=== PATIENT | female | born 1990 | race American Indian/Alaskan Native ===

== ENCOUNTER 2016-10-06 16:46 | Emergency (ER) | payer SELFPAY ==
[2016-10-06 18:00] LABS: Basophils % (Auto) 0.5 % (0.0-1.8); Eosinophils % (Auto) 3.4 % (0.0-4.3); Hematocrit 38.7 % (30.3-42.9); Hemoglobin 12.3 gm/dl (10.1-14.3); Mean Corpuscular HGB Conc 32 % (30-34); Mean Corpuscular Hemoglobin 28 pg (28-32); Mean Corpuscular Volume 88 fl (79-97); Platelet Count 212 K/mm3 (140-440); Red Blood Count 4.39 M/mm3 (3.65-5.03); Red Cell Distribution Width 14.9 % (13.2-15.2); White Blood Count 8.3 K/mm3 (4.5-11.0)
[2016-10-06 18:11] LABS: BUN/Creatinine Ratio 7.77; Blood Urea Nitrogen 7 mg/dL (7-17); Calcium 8.8 mg/dL (8.4-10.2); Carbon Dioxide 20 mmol/L (22-30); Glucose 84 mg/dL (65-100); Lipase 50 units/L (13-60)
[2016-10-06 18:12] LABS: Anion Gap 18 mmol/L; Chloride 101.3 mmol/L (98-107); Potassium 3.7 mmol/L (3.6-5.0); Sodium 136 mmol/L (137-145)
[2016-10-06 19:23] LABS: Bacteria,Urine 1+ /HPF (Negative); Bilirubin,Urine NEG (Negative); Blood,Urine NEG (Negative); Ketones,Urine 20 mg/dL (Negative); Leukocyte Esterase,Urine TR (Negative); Mucus,Urine 3+ /HPF; Nitrite,Urine NEG (Negative); Protein,Urine <15 mg/dL mg/dL (Negative); Urobilinogen,Urine < 2.0 mg/dL (<2.0); WBC,Urine < 1.0 /HPF (0.0-6.0)
[2016-10-06] MEDS ORDERED: ZOFRAN IV ONE ×2 (20:28→22:35)
[2016-10-06] MEDS ORDERED: NACL 0.9% 1000 ML 1,000 ML IV ONE (22:35)
--- NOTE | 2016-10-06 22:53 | Emergency Department Report ---
HPI - General Chief Complaint: Nausea/Vomiting/Diarrhea Time Seen by Provider: 10/06/16 22:28 - HPI HPI: Room 4 The patient's 26-year-old female presenting with a chief complaint of nausea and vomiting. Patient states for the past week she has had intractable nausea and vomiting. Patient states her symptoms began she did not have abdominal pain over the past 3 days her abdomen has become sore from vomiting. Patient describes lower abdominal soreness. Patient admits to subjective fever. Patient denies vaginal bleeding, dysuria or hematuria. Patient states she cannot recall the last time showed cycle because she is irregular Location: Gastrointestinal system Duration: One week Quality: Nausea Severity: Severe Modifying factors: [see above] Context: [see above] Mode of transportation: [not driving] ED Past Medical Hx - Past Medical History Hx Asthma: Yes (last attack 2011) - Surgical History Past Surgical History?: No - Family History Family history: no significant - Social History Smoking Status: Current Some Day Smoker Substance Use Type: Marijuana - Medications Home Medications: Home Medications Medication Instructions Recorded Confirmed Last Taken Type Ondansetron [Zofran ODT TAB] 8 mg PO Q8HR #30 tab.rapdis 10/07/16 Unknown Rx ED Review of Systems ROS: Stated complaint: N/V Other details as noted in HPI Comment: All other systems reviewed and negative Constitutional: denies: chills, fever Eyes: denies: eye pain, eye discharge, vision change ENT: denies: ear pain, throat pain Respiratory: denies: cough, shortness of breath, wheezing Cardiovascular: denies: chest pain, palpitations Endocrine: no symptoms reported Gastrointestinal: abdominal pain, nausea, vomiting Genitourinary: abnormal menses. denies: urgency, dysuria, discharge Musculoskeletal: denies: back pain, joint swelling, arthralgia Skin: denies: rash, lesions Neurological: denies: headache, weakness, paresthesias Psychiatric: denies: anxiety, depression Hematological/Lymphatic: denies: easy bleeding, easy bruising Physical Exam - Physical Exam Vital Signs: Vital Signs 10/06/16 10/06/16 10/06/16 17:18 21:41 21:53 Temperature 98.1 F 98.3 F Pulse Rate 83 87 Respiratory 22 22 22 Rate Blood Pressure 128/68 Blood Pressure 127/65 [Left] O2 Sat by Pulse 100 98 Oximetry Physical Exam: GENERAL: The patient is well-developed well-nourished female lying on stretcher not appear to be in acute distress. [] HEENT: Normocephalic. Atraumatic. Extraocular motions are intact. Patient has moist mucous membranes. NECK: Supple. Trachea midline CHEST/LUNGS: Clear to auscultation. There is no respiratory distress noted. HEART/CARDIOVASCULAR: Regular. There is no tachycardia. There is no gallop rub or murmur. ABDOMEN: Abdomen is soft, mild discomfort to palpation in the left lower quadrant and right lower quadrant. Patient has normal bowel sounds. There is no abdominal distention. SKIN: There is no rash. There is no edema. There is no diaphoresis. NEURO: The patient is awake, alert, and oriented. The patient is cooperative. The patient has normal speech MUSCULOSKELETAL: There is no evidence of acute injury. ED Course Vital Signs 10/06/16 10/06/16 10/06/16 17:18 21:41 21:53 Temperature 98.1 F 98.3 F Pulse Rate 83 87 Respiratory 22 22 22 Rate Blood Pressure 128/68 Blood Pressure 127/65 [Left] O2 Sat by Pulse 100 98 Oximetry - Reevaluation(s) Reevaluation #1: 10/07/16 00:43 Patient tolerating po ED Medical Decision Making - Lab Data Result diagrams: 10/06/16 17:33 10/06/16 17:33 Laboratory Tests 10/06/16 10/06/16 10/06/16 17:13 17:33 17:33 WBC 8.3 RBC 4.39 Hgb 12.3 Hct 38.7 MCV 88 MCH 28 MCHC 32 RDW 14.9 Plt Count 212 Lymph % (Auto) 39.7 H [place] % (Auto) 6.0 Eos % (Auto) 3.4 Baso % (Auto) 0.5 Lymph # 3.3 [place] # 0.5 Eos # 0.3 Baso # 0.0 Seg Neutrophils % 50.4 Seg Neutrophils # 4.2 Sodium 136 L Potassium 3.7 Chloride 101.3 Carbon Dioxide 20 L Anion Gap 18 BUN 7 Creatinine 0.9 Estimated GFR > 60 BUN/Creatinine Ratio 7.77 Glucose 84 POC Glucose 106 H Calcium 8.8 Lipase 50 HCG, Quant Urine Color Urine Turbidity Urine pH Ur Specific [place] Urine Protein Urine Glucose (UA) Urine Ketones Urine Blood Urine Nitrite Urine Bilirubin Urine Urobilinogen Ur Leukocyte Esterase Urine WBC (Auto) Urine RBC (Auto) U Epithel Cells (Auto) Urine Bacteria (Auto) Urine Mucus Urine HCG, Qual 10/06/16 10/06/16 10/06/16 17:33 19:03 22:15 WBC RBC Hgb Hct MCV MCH MCHC RDW Plt Count Lymph % (Auto) [place] % (Auto) Eos % (Auto) Baso % (Auto) Lymph # [place] # Eos # Baso # Seg Neutrophils % Seg Neutrophils # Sodium Potassium Chloride Carbon Dioxide Anion Gap BUN Creatinine Estimated GFR BUN/Creatinine Ratio Glucose POC Glucose 79 Calcium Lipase HCG, Quant 30671 H Urine Color Yellow Urine Turbidity Clear Urine pH 6.0 Ur Specific [place] 1.026 Urine Protein <15 mg/dl Urine Glucose (UA) Neg Urine Ketones 20 Urine Blood Neg Urine Nitrite Neg Urine Bilirubin Neg Urine Urobilinogen < 2.0 Ur Leukocyte Esterase Tr Urine WBC (Auto) < 1.0 Urine RBC (Auto) 7.0 U Epithel Cells (Auto) 10.0 Urine Bacteria (Auto) 1+ Urine Mucus 3+ Urine HCG, Qual Positive A - EKG Data -: EKG Interpreted by Me EKG shows normal: sinus rhythm Rate: normal - EKG Data When compared to previous EKG there are: previous EKG unavailable Interpretation: other (no ischemic changes seen) - Radiology Data Radiology results: report reviewed (pelvic ultrasound), image reviewed (pelvic ultrasound) Pelvic ultrasound (read by radiologist)- possible normal early intrauterine gestation at 5 weeks and 6 days. At this time no pole or cardiac activity is identified. Follow-up is recommended. Complex lesions in the left ovary could be hemorrhagic cyst. Follow-up recommended. There is no free fluid. - Differential Diagnosis hyperemesis gravidarum, ectopic , Critical care attestation.: If time is entered above; I have spent that time in minutes in the direct care of this critically ill patient, excluding procedure time. ED Disposition Clinical Impression: Hyperemesis gravidarum, Disposition: DISCHARGED TO HOME OR SELFCARE Is pt being admited?: No Does the pt Need Aspirin: No Condition: Stable Instructions: Hyperemesis Gravidarum (ED) Additional Instructions: Return to the emergency department immediately should you develop worsening symptoms, fever, inability to tolerate food or liquid or any other concerns. Prescriptions: Ondansetron [Zofran ODT TAB] 8 mg PO Q8HR #30 tab.rapdis Referrals: PRIMARY CARE, [Primary Care Provider] - 3-5 Days [facility] [Provider Group] - [place] Time of Disposition: 00:42
--- NOTE | 2016-10-06 23:37 | Ultrasound Report ---
FINAL REPORT PROCEDURE: US OB \T\lt; = 14 WEEKS FETUS TECHNIQUE: Real-time transabdominal sonography of the uterus, placenta, amniotic fluid, adnexa, and fetus was performed with image documentation. Measurements were obtained to determine age/size. M-mode Doppler was used to document heartbeat. CPT 61230 HISTORY: lower abdominal pain and COMPARISON: No prior studies are available for comparison. FINDINGS: There is a sac-like structure in the endometrial cavity which measures 11 millimeters. This suggests an intrauterine gestation at 5 weeks and 6 days. No pole, yolk sac or cardiac activity is identified. Followup recommended. There is an adjacent subchorionic hematoma measuring 9 x 4 x 11 millimeters. The uterus measures 10.3 x 5.9 x 5.6 centimeters. Right ovary measures 3.4 x 1.9 x 2.4 centimeters. Left ovary measures 3.5 x 5 x 4.5 centimeters. There is a complex cyst measuring 2.8 centimeters and a complex mass measuring 3.5 centimeters. These could be hemorrhagic cysts. Followup is recommended. There is no free pelvic fluid. IMPRESSION: Possible normal early intrauterine gestation at 5 weeks and 6 days. At this time no pole, yolk sac or cardiac activity is identified. Followup is recommended. Complex lesions in the left ovary could be hemorrhagic cysts. Follow-up recommended. There is no free fluid.
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
[2016-10-07 00:55] VITALS: BP 113/68
== END 2016-10-07 00:40 | disposition home or self-care (01) ==
LOC: ED 16:46
DX: O21.0 Mild hyperemesis gravidarum (principal); Z3A.01 Less than 8 weeks gestation of pregnancy; J45.909 Unspecified asthma, uncomplicated; Z88.0 Allergy status to penicillin; Z88.1 Allergy status to other antibiotic agents
CPT/HCPCS: 36415; 76801; 76817; 80048; 81001; 81025; 82962; 83690; 84702; 85025; 93005; 93010; 96361; 96374; 96375; 99284; J2405; J7030

== ENCOUNTER 2017-03-06 20:33 | Outpatient (CLI) | payer OTHER, MEDICAID ==
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
[~2017-03-06 20:33] MED LIST: TYLENOL PO ONE
[2017-03-07 11:36] VITALS: BP 115/58
== END 2017-03-06 21:45 | disposition home or self-care (01) ==
LOC: TRG 20:33 → LDOR 20:33 → TRG 20:37 → LD 20:53 → TRG 20:53 → LDOR 21:45 → EDSTATUS 21:46
PROVIDERS: ATTEND Obstetrics & Gynecology
DX: O26.892 Other specified pregnancy related conditions, second trimester (principal); R10.9 Unspecified abdominal pain; M54.5 Low back pain; M25.551 Pain in right hip; O99.332 Smoking (tobacco) complicating pregnancy, second trimester; V89.2XXA Person injured in unspecified motor-vehicle accident, traffic, initial encounter; Z3A.27 27 weeks gestation of pregnancy; Y93.89 Activity, other specified; Y92.89 Other specified places as the place of occurrence of the external cause; Y99.8 Other external cause status
CPT/HCPCS: 59025; 72020; 76700; 76816

== ENCOUNTER 2017-05-17 02:20 | Outpatient (CLI) | payer MEDICAID ==
[2017-05-17 03:01] VITALS: BP 132/82
[2017-05-17] MEDS ORDERED: VISTARIL PO ONE (03:04)
== END 2017-05-17 03:10 | disposition home or self-care (01) ==
LOC: TRG 02:20
PROVIDERS: ATTEND Obstetrics & Gynecology
DX: O47.1 False labor at or after 37 completed weeks of gestation (principal); Z87.891 Personal history of nicotine dependence; Z3A.37 37 weeks gestation of pregnancy
CPT/HCPCS: 59025; Q0177

== ENCOUNTER 2017-05-19 13:08 | Outpatient (CLI) | payer MEDICAID ==
[2017-05-19 13:43] VITALS: BP 116/70
--- NOTE | 2017-05-19 15:46 | Ultrasound Report ---
BIOPHYSICAL PROFILE: INDICATION: Decreased movement. COMPARISON: None similar. TECHNIQUE: Transabdominal ultrasound with Doppler interrogation. 2 - breathing movements 2 - movements 2 - posture and tone 2 - Qualitative amniotic fluid volume 8 - TOTAL SCORE OF POSSIBLE 8 Heart Rate (bpm) 143 CONCLUSION: Findings, as above.
== END 2017-05-19 15:30 | disposition home or self-care (01) ==
LOC: TRG 13:08
PROVIDERS: ATTEND Obstetrics & Gynecology
DX: O36.8130 Decreased fetal movements, third trimester, not applicable or unspecified (principal); O47.1 False labor at or after 37 completed weeks of gestation; Z87.891 Personal history of nicotine dependence; Z3A.38 38 weeks gestation of pregnancy
CPT/HCPCS: 59025; 76819

== ENCOUNTER 2017-05-26 22:58 | Outpatient (CLI) | payer MEDICAID ==
[2017-05-26 23:56] VITALS: BP 120/67
[2017-05-27] MEDS ORDERED: VISTARIL PO ONE (01:48)
== END 2017-05-27 01:35 | disposition home or self-care (01) ==
LOC: TRG 22:58
PROVIDERS: ATTEND Obstetrics & Gynecology
DX: O47.1 False labor at or after 37 completed weeks of gestation (principal); Z3A.39 39 weeks gestation of pregnancy
CPT/HCPCS: Q0177

== ENCOUNTER 2017-05-30 04:30 | Inpatient (IN) | payer MEDICAID ==
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
[2017-05-30] MEDS ORDERED: LACTATED RINGERS 1,000 ML ONE (05:43)
[2017-05-30] MEDS ORDERED: ZOFRAN IV PRN (05:49)
[2017-05-30] MEDS ORDERED: SUBLIMAZE IV PRN (05:49)
[2017-05-30] MEDS ORDERED: BRETHINE SUB-Q PRN (05:49)
[2017-05-30] MEDS ORDERED: XYLOCAINE 2% INFILTRATI ONE (05:49)
[2017-05-30] MEDS ORDERED: MINERAL OIL PO PRN (05:49)
[2017-05-30] MEDS ORDERED: ePHEDrine SULFATE IV PRN ×2 (05:49→09:24)
[2017-05-30] MEDS ORDERED: PITOCin/NS 20 UNIT/1000ML DRIP 20 UNITS/1,000 ML BAG IV SCH ×2 (06:00→12:16)
[2017-05-30] MEDS: LACTATED RINGERS 1,000 ML IV SCH ×2 (06:00→08:39)
[2017-05-30 06:08] LABS: Hematocrit 34.4 % (30.3-42.9); Hemoglobin 11.6 gm/dl (10.1-14.3); Mean Corpuscular HGB Conc 34 % (30-34); Mean Corpuscular Hemoglobin 30 pg (28-32); Mean Corpuscular Volume 88 fl (79-97); Platelet Count 143 K/mm3 (140-440); Red Blood Count 3.89 M/mm3 (3.65-5.03); Red Cell Distribution Width 13.7 % (13.2-15.2)
[2017-05-30] MEDS: PITOCin/NS 30 UNIT/500ML 30 UNITS/500 ML BAG IV SCH ×2 (06:29→07:29)
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
[2017-05-30 06:57] LABS: Bilirubin,Urine NEG (Negative); Blood,Urine SM (Negative); Color,Urine Yellow (Yellow); Hyaline Casts,Urine 1 /LPF; Mucus,Urine 3+ /HPF; Nitrite,Urine NEG (Negative)
[2017-05-30] MEDS ORDERED: STADOL IV PRN (08:53)
[2017-05-30] MEDS ORDERED: STADOL ONE (08:57)
--- NOTE | 2017-05-30 09:01 | Progress Note ---
Assessment and Plan IVF open for pre-epidural bolus, anesthesia called and states he will be here "in awhile". Order for stadol given. Anticipate . - Patient Problems (1) Active labor at term Current Visit: No Status: Acute Subjective - Subjective Date of service: 05/30/17 Principal diagnosis: active labor @ term Patient reports: loss of fluid, movement normal, contractions Objective - Vital Signs Vital Signs: Vital Signs - 12hr 05/30/17 05/30/17 05/30/17 04:45 04:46 05:41 Temperature 97.9 F Pulse Rate 114 H 114 H 103 H Respiratory 20 Rate Blood Pressure 118/78 134/60 Blood Pressure 118/78 [Left] O2 Sat by Pulse Oximetry 05/30/17 05/30/17 05/30/17 05:53 05:57 05:58 Temperature Pulse Rate 101 H 107 H 103 H Respiratory Rate Blood Pressure Blood Pressure [Left] O2 Sat by Pulse 98 89 98 Oximetry 05/30/17 05/30/17 05/30/17 06:16 06:21 06:23 Temperature Pulse Rate 95 H 100 H 93 H Respiratory Rate Blood Pressure Blood Pressure [Left] O2 Sat by Pulse 97 95 94 Oximetry 05/30/17 05/30/17 05/30/17 06:26 06:28 06:31 Temperature Pulse Rate 109 H 92 H 102 H Respiratory Rate Blood Pressure Blood Pressure [Left] O2 Sat by Pulse 97 94 96 Oximetry 05/30/17 05/30/17 05/30/17 06:36 06:41 06:46 Temperature Pulse Rate 102 H 86 97 H Respiratory Rate Blood Pressure Blood Pressure [Left] O2 Sat by Pulse 96 98 97 Oximetry 05/30/17 05/30/17 05/30/17 06:51 06:52 06:56 Temperature Pulse Rate 90 92 H 91 H Respiratory Rate Blood Pressure Blood Pressure [Left] O2 Sat by Pulse 95 94 97 Oximetry 05/30/17 05/30/17 05/30/17 07:01 07:06 07:11 Temperature Pulse Rate 82 93 H 86 Respiratory Rate Blood Pressure Blood Pressure [Left] O2 Sat by Pulse 96 98 98 Oximetry 05/30/17 05/30/17 05/30/17 07:16 07:21 07:24 Temperature 96.8 F L Pulse Rate 74 87 88 Respiratory 16 Rate Blood Pressure Blood Pressure 118/79 [Left] O2 Sat by Pulse 96 98 Oximetry 05/30/17 05/30/17 05/30/17 07:26 07:30 07:31 Temperature Pulse Rate 89 102 H 89 Respiratory Rate Blood Pressure 118/79 Blood Pressure [Left] O2 Sat by Pulse 98 90 98 Oximetry 05/30/17 05/30/17 05/30/17 07:36 07:41 07:46 Temperature Pulse Rate 82 88 80 Respiratory Rate Blood Pressure Blood Pressure [Left] O2 Sat by Pulse 98 97 98 Oximetry 05/30/17 05/30/17 05/30/17 07:51 07:56 08:01 Temperature Pulse Rate 85 99 H 86 Respiratory Rate Blood Pressure Blood Pressure [Left] O2 Sat by Pulse 98 99 97 Oximetry 05/30/17 05/30/17 05/30/17 08:06 08:11 08:16 Temperature Pulse Rate 74 75 91 H Respiratory Rate Blood Pressure Blood Pressure [Left] O2 Sat by Pulse 98 97 96 Oximetry 05/30/17 05/30/17 05/30/17 08:21 08:26 08:31 Temperature Pulse Rate 88 81 91 H Respiratory Rate Blood Pressure Blood Pressure [Left] O2 Sat by Pulse 97 97 97 Oximetry 05/30/17 05/30/17 05/30/17 08:36 08:37 08:41 Temperature Pulse Rate 85 74 76 Respiratory Rate Blood Pressure Blood Pressure [Left] O2 Sat by Pulse 98 78 L 97 Oximetry 05/30/17 05/30/17 05/30/17 08:42 08:46 08:50 Temperature Pulse Rate 82 79 78 Respiratory Rate Blood Pressure Blood Pressure [Left] O2 Sat by Pulse 94 99 87 Oximetry 05/30/17 08:51 Temperature Pulse Rate 82 Respiratory Rate Blood Pressure Blood Pressure [Left] O2 Sat by Pulse 97 Oximetry - Exam Breasts: normal Cardiovascular: Regular rate Lungs: Clear to auscultation, Normal air movement Abdomen: Present: normal appearance, soft Vulva: both: normal Uterus: Present: normal FHR: category 1 Uterine Contraction Monitor Mode: Internal Cervical Dilatation: 5.5 Cervical Effacement Percentage: 70 station: -2 Uterine Contraction Pattern: Regular Uterine Tone Measurement Phase: Contraction Uterine Contraction Intensity: Strong/Firm Extremities: normal - Labs Labs: Laboratory Results - last 24 hr 05/30/17 05/30/17 05/30/17 05:30 05:30 06:15 WBC 7.7 RBC 3.89 Hgb 11.6 Hct 34.4 MCV 88 MCH 30 MCHC 34 RDW 13.7 Plt Count 143 Urine Color Yellow Urine Turbidity Slightly-cloudy Urine pH 6.0 Ur Specific [place] 1.026 Urine Protein 30 mg/dl Urine Glucose (UA) Neg Urine Ketones Tr Urine Blood Sm Urine Nitrite Neg Urine Bilirubin Neg Urine Urobilinogen 4.0 Ur Leukocyte Esterase Neg Urine WBC (Auto) 2.0 Urine RBC (Auto) 3.0 U Epithel Cells (Auto) 3.0 Hyaline Casts 1 Urine Mucus 3+ Blood Type O POSITIVE Antibody Screen Negative
[2017-05-30] MEDS ORDERED: fentaNYL-BUPIV 2 MCG/ML-0.125% 200 MCG/100 ML BAG EPIDURAL ONE (09:22)
[2017-05-30] MEDS ORDERED: NARCAN 2 MG/2 ML IV PRN (09:24)
--- NOTE | 2017-05-30 09:24 | Anesthesia Consultation ---
Anesthesia Consult and Med Hx Date of service: 05/30/17 - Airway Anesthetic Teeth Evaluation: Good ROM Head & Neck: Adequate Mental/Hyoid Distance: Adequate Intubation Access Assessment: Possibly Difficult - Pre-Operative Health Status ASA Pre-Surgery Classification: ASA3, Emergency Proposed Anesthetic Plan: Epidural, Spinal - Pulmonary Hx Asthma: Yes (childhood) COPD: No Hx Pneumonia: No - Cardiovascular System Hx Hypertension: No Hx Coronary Artery Disease: No Hx Heart Attack/AMI: No Hx Angina: No - Central Nervous System Hx Seizures: No Hx Psychiatric Problems: No - Endocrine Hx Renal Disease: No Hx End Stage Renal Disease: No Hx Hypothyroidism: No Hx Hyperthyroidism: No - Hematic Hx Anemia: No Hx Sickle Cell Disease: No - Other Systems Hx Alcohol Use: No Hx Obesity: Yes (morbid)
[2017-05-30] MEDS ORDERED: fentaNYL-BUPIV 2 MCG/ML-0.125% 200 MCG/100 ML BAG EPIDURAL SCH (10:00)
--- NOTE | 2017-05-30 10:05 | Procedure Note ---
OB Delivery Note - Delivery Date of Delivery: 05/30/17 ( female) Fiberglass Laminator: MEIR MANUEL Estimated blood loss: 300cc - Vaginal Delivery presentation: vertex Delivery position: OA Intrapartum events: none Delivery induction: none Delivery augmentation: rupture of membranes, pitocin Delivery monitor: internal FHT, internal uterine Route of delivery: Delivery placenta: spontaneous Delivery cord: 3 umbilical vessels Episiotomy: none Delivery laceration: none Anesthesia: epidural Delivery comments: female infant del over intact perineum, NEL. no shoulder dystocia. placed skin to skin, 3 vessel cord clamped and cut. cord blood collected. Placenta del intact and complete. EBL 300, apgars 8/9, baby's weight 6#11oz. Mother and infant remain LDR stable. - A at 1 minute: 8 at 5 minutes: 9 Gender: Female (6#11)
[2017-05-30] MEDS ORDERED: LANSINOH TP PRN (12:16)
[2017-05-30] MEDS ORDERED: SODIUM CHLORIDE FLUSH SYRINGE 10 ML IV NR (12:16)
[2017-05-30] MEDS ORDERED: DULCOLAX PR PRN (12:16)
[2017-05-30] MEDS ORDERED: BENADRYL PO PRN (12:16)
[2017-05-30] MEDS ORDERED: TUCKS PAD TP PRN (12:16)
[2017-05-30] MEDS ORDERED: METHERGINE IM PRN (12:16)
[2017-05-30] MEDS ORDERED: MILK OF MAGNESIA PO PRN (12:16)
[2017-05-30] MEDS ORDERED: TYLENOL PO PRN (12:16)
[2017-05-30] MEDS ORDERED: CYTOTEC PR PRN (12:16)
[2017-05-30] MEDS ORDERED: PHENERGAN PO PRN (12:16)
[2017-05-30] MEDS: MOTRIN PO SCH ×2 (13:00→19:35)
[2017-05-30] MEDS: NORCO 5/325 PO PRN (19:06)
[2017-05-30 21:07] LABS: Hematocrit 31.3 % (30.3-42.9); Hemoglobin 10.5 gm/dl (10.1-14.3)
[2017-05-30] MEDS: COLACE PO SCH (22:59)
[2017-05-31] MEDS: MOTRIN PO SCH ×3 (01:14→18:58)
[2017-05-31] MEDS: NORCO 5/325 PO PRN ×2 (01:14→08:18)
[2017-05-31] MEDS ORDERED: BOOSTRIX IM ONE (06:00)
[2017-05-31] MEDS ORDERED: PRENATAL VITAMIN PO SCH (10:00)
--- NOTE | 2017-05-31 10:18 | Discharge Summary ---
Providers - Providers Date of Admission: 05/30/17 05:15 Date of discharge: 05/31/17 Attending physician: EDIWGE GARCIA 05/30/17 12:16 Consult to Card Cutter [CONS] Routine Reason For Exam: assistance with , SNS Primary care physician: EDWIGE GARCIA Hospitalization Reason for admission: labor at term Condition: Good Pertinent studies: doppler of LLE was O+ Hct 31 Procedures: vag del Hospital course: did well except for L calf pain eval with venous doppler--preliminary by tech read as normal at 10:00AM Disposition: DC-01 TO HOME OR SELFCARE - Discharge Diagnoses (1) Vaginal delivery Status: Acute (2) 39 weeks gestation of Status: Acute (3) Active labor at term Status: Acute Core Measure Documentation - Palliative Care Palliative Care/ Comfort Measures: Not Applicable - Core Measures Any of the following diagnoses?: none Exam - Constitutional Vitals: Temp Pulse Resp BP Pulse Ox 97.6 F 93 H 18 113/58 97 05/31/17 08:30 05/31/17 08:30 05/31/17 08:30 05/31/17 08:30 05/30/17 09:49 General appearance: Present: no acute distress - EENT ENT: hearing intact - Respiratory Respiratory effort: normal - Cardiovascular Rhythm: regular - Extremities Extremities: no ischemia, No edema (left calf sl tender to palpation, will evaluate) - Abdominal General gastrointestinal: Present: soft, non-tender (fundus firm) Female genitourinary: Present: deferred - Rectal Rectal Exam: deferred - Integumentary Integumentary: Present: clear, warm - Musculoskeletal Musculoskeletal: strength equal bilaterally - Psychiatric Psychiatric: appropriate mood/affect - Neurologic Neurologic: CNII-XII intact Plan Activity: advance as tolerated Weight Bearing Status: Full Weight Bearing Diet: regular Follow up with: EDWIGE GARCIA MD [Primary Care Provider] - 7 Days
[2017-05-31] MEDS: COLACE PO SCH (10:50)
[2017-05-31 21:07] VITALS: BP 118/66
--- NOTE | 2017-06-01 08:43 | Vascular Lab Report ---
Left Lower Extremity Venous Duplex Study: Reason for Exam: Pain of the left lower extremity. Comments on the Right: A limited duplex study was done of the proximal veins of the right lower extremity. All veins visualized are freely compressible without evidence of internal echogenicity. Flow is spontaneous and phasic throughout. No evidence of acute or chronic thrombus is seen in any of the vessels visualized. Comments on the Left: All veins visualized are freely compressible without evidence of internal echogenicity. Flow is spontaneous and phasic throughout. No evidence of acute or chronic thrombus is seen in any of the vessels visualized. Impression: No evidence of acute or chronic deep venous thrombosis in the left lower extremity.
== END 2017-05-31 20:55 | disposition home or self-care (01) | DRG 775 ==
LOC: TRG 04:30 → LD 05:15 → OB 12:00
PROVIDERS: ADMIT Obstetrics & Gynecology; ATTEND Obstetrics & Gynecology
PROC: 10E0XZZ Delivery of Products of Conception, External Approach (ICD-10-PCS; principal; 2017-05-30)
PROC: 3E0R3BZ Introduction of Anesthetic Agent into Spinal Canal, Percutaneous Approach (ICD-10-PCS; 2017-05-30)
PROC: 00HU33Z Insertion of Infusion Device into Spinal Canal, Percutaneous Approach (ICD-10-PCS; 2017-05-30)
PROC: 10907ZC Drainage of Amniotic Fluid, Therapeutic from Products of Conception, Via Natural or Artificial Opening (ICD-10-PCS; 2017-05-30)
PROC: 3E0234Z Introduction of Serum, Toxoid and Vaccine into Muscle, Percutaneous Approach (ICD-10-PCS; 2017-05-31)
DX: O99.02 Anemia complicating childbirth (principal); F17.210 Nicotine dependence, cigarettes, uncomplicated; O99.334 Smoking (tobacco) complicating childbirth; D57.3 Sickle-cell trait; O99.52 Diseases of the respiratory system complicating childbirth; O99.214 Obesity complicating childbirth; E66.01 Morbid (severe) obesity due to excess calories; J45.909 Unspecified asthma, uncomplicated; Z3A.39 39 weeks gestation of pregnancy; Z37.0 Single live birth; Z23 Encounter for immunization; Z68.41 Body mass index [BMI] 40.0-44.9, adult
CPT/HCPCS: 36415; 81001; 85014; 85018; 85027; 86592; 86850; 86900; 86901; 90471; 90715; 99211; A6250; G0463; J0595; J2590; J3010; J7120

== ENCOUNTER 2017-07-25 07:13 | Day surgery (SDC) | payer MEDICAID ==
--- NOTE | 2017-07-24 11:30 | History and Physical Report ---
History of Present Illness Date of examination: 07/21/17 Date of admission: 07/26/17 Chief complaint: here for tubal ligation History of present illness: Pt presents for tubal ligation vial lorneshi clips. Risk of failure and benefits of having salpingectomy were d/w pt and questions were addressed and answered. Consents signed and given to pt to bring to hospital day of surgery. 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: denies: abnormal PAP smear Social history: no significant social history, - Obstetrical History : 8 Para: 5 Hx # Term Pregnancies: 4 Number of Pregnancies: 1 Induced : 2 Number of Living Children: 5 Medications and Allergies Allergies Allergy/AdvReac Type Severity Reaction Status Date / Time amoxicillin [Amoxicillin] Allergy Severe Anaphylaxis Verified 05/30/17 12:42 Penicillins Allergy Severe Anaphylaxis Verified 05/30/17 12:42 Home Medications Medication Instructions Recorded Confirmed Last Taken Type Vit-Fe Fumar-FA [ 1 tab PO QDAY 05/19/17 05/31/17 05/18/17 09: 00 History Vitamin] 1 Active Meds: Active Medications Gentamicin Sulfate (Garamycin) 100 mg IV PREOP ALEJANDRO PRN Reason: Protocol Clindamycin HCl (Cleocin 600 Mg/50 Ml) 600 mg in 50 mls @ 100 mls/hr IV PREOP NR PRN Reason: Protocol Review of Systems All systems: negative - Physical Exam Cardiovascular: Normal S1, Normal S2 Lungs: Positive: Clear to auscultation, Normal air movement Abdomen: Positive: normal appearance, soft, normal bowel sounds. Negative: distention, tenderness, guarding Genitourinary (Female): Positive: other (deferred until EUA) Deep Tendon Reflex Grade: Normal +2 - Obstetrical FHR: auscultation normal Results All other labs normal. Assessment and Plan - Patient Problems (1) Encounter for sterilization Status: Acute Plan to address problem: -all other risk, benefits, alternatives were d/w pt and questions were addressed and answered. -consents signed and given to pt to bring to hospital day of sx
[~2017-07-25 07:13] MED LIST changes: +CLEOCIN 600 MG/50 mL 600 MG/50 ML BAG IV NR; +GARAMYCIN IV NR; -TYLENOL PO ONE
--- NOTE | 2017-07-25 08:31 | Anesthesia Consultation ---
Anesthesia Consult and Med Hx Date of service: 07/25/17 - Airway Anesthetic Teeth Evaluation: Good ROM Head & Neck: Adequate Mental/Hyoid Distance: Adequate Mallampati Class: Class II Intubation Access Assessment: Probably Good - Pre-Operative Health Status ASA Pre-Surgery Classification: ASA3 Proposed Anesthetic Plan: General - Pulmonary Hx Smoking: Yes (1/2 p/day x 9 years) Hx Asthma: Yes (childhood) COPD: No Hx Pneumonia: No - Cardiovascular System Hx Hypertension: No Hx Coronary Artery Disease: No Hx Heart Attack/AMI: No Hx Angina: No - Central Nervous System Hx Seizures: No Hx Psychiatric Problems: No - Endocrine Hx Renal Disease: No Hx End Stage Renal Disease: No Hx Hypothyroidism: No Hx Hyperthyroidism: No - Hematic Hx Anemia: No Hx Sickle Cell Disease: No - Other Systems Hx Alcohol Use: Yes (occas) Hx Substance Use: Yes (marijuana, last 07/23/17) Hx Cancer: No Hx Obesity: Yes (morbid, BMI 43.5)
--- NOTE | 2017-07-25 08:32 | Anesthesia Day of Surgery ---
Anesthesia Day of Surgery - Day of Surgery Patient Examined: Yes Patient H&P Reviewed: Yes Patient is NPO: Yes
[2017-07-25] MEDS ORDERED: NACL BACTERIOSTATIC INFILTRATI ONE (08:34)
[2017-07-25] MEDS ORDERED: MARCAINE 0.5% 30 ML INFILTRATI ONE (08:41)
[2017-07-25] MEDS ORDERED: VERSED IV NR (09:00)
[2017-07-25] MEDS ORDERED: PEPCID IV NR (09:00)
[2017-07-25] MEDS ORDERED: CLEOCIN 600 MG/50 mL 600 MG/50 ML BAG IV NR (09:00)
[2017-07-25] MEDS ORDERED: GARAMYCIN/NS 100 MG/100 ML 100 MG/100 ML BAG IV NR (09:00)
[2017-07-25] MEDS ORDERED: NACL 0.9% 1000 ML 1,000 ML IV SCH (09:00)
[2017-07-25] MEDS ORDERED: DIPRIVAN 10 MG/ML IV ONE (09:08)
[2017-07-25] MEDS ORDERED: SUBLIMAZE ONE (09:08)
[2017-07-25] MEDS ORDERED: ZEMURON IV ONE (09:34)
[2017-07-25] MEDS ORDERED: TORADOL ONE (09:34)
[2017-07-25] MEDS ORDERED: ROBINUL ONE (09:34)
[2017-07-25] MEDS ORDERED: ZOFRAN ONE (09:34)
[2017-07-25] MEDS ORDERED: NEOSTIGMINE ONE (09:34)
[2017-07-25] MEDS ORDERED: XYLOCAINE CARDIAC IV ONE (09:34)
[2017-07-25] MEDS ORDERED: MARCAINE 0.5% INFILTRATI ONE (10:03)
--- NOTE | 2017-07-25 10:44 | Post Anesthesia Evaluation ---
- Post Anesthesia Evaluation Patient Participated: Yes Airway Patent: Yes Stable Respiratory Function: Yes Nausea/Vomiting: No Temp > 96.8F: Yes Pain Manageable: Yes Adequeate Hydration: Yes Anesthesia Complications: No Block Receding Appropriately: Not Applicable Patient on Ventilator: No
--- NOTE | 2017-07-25 10:54 | Operative Report ---
Operative Report Operative Report: Date of procedure: 2017 Pre-operative diagnosis: Desires sterilization Post-operative diagnosis: Same Procedure name(s): Laparoscopic bilateral tubal ligation via placement of Filshie clips Surgeon: Dr. Myles Teacher Vocal: DAVID Anesthesia: Gen. endotracheal anesthesia EBL: Minimal Urine output: 50 mL of clear urine out prior to the procedure via straight catheterization Fluids: 500 mL Findings: Grossly normal fallopian tubes and ovaries bilaterally Normal uterus Indications: Patient desires sterilization as a form of contraception. All risks benefits and alternatives were discussed with the patient. All questions were addressed and answered. Consents were signed and placed on the chart. Procedure: Patient was taken to the operating room and which she was placed under general endotracheal anesthesia. Patient was then prepped and draped in sterile fashion and placed in dorsal lithotomy position in Donny stirrups. Patient underwent straight catheterization. Attention was then turned to the vagina in which a sterile speculum was placed. Visualization of the cervix was noted. The anterior lip of the cervix was grasped with a single-tooth tenaculum. The uterus was then sounded to approximately 8 cm. A Humi uterine manipulator was placed thought difficulty. Attention was then turned to the umbilicus and which an infraumbilical incision was made with the scalpel 5mm trocar was placed using direct visualization with the camera. Abdomen was then insufflated with gas. Under direct visualization a second 8 mm trocar was placed. The Filshie clip epilepsy physician with a Filshie clip was then placed through the 8 mm trocar. The Filshie clips were placed bilaterally on each fallopian tube without difficulty. Care was taken to be sure that the Filshie clips encompassed the entire fallopian tube. After tubal ligation was completed all instruments were removed from the abdomen under direct visualization. All gas was also released from the abdomen. The skin was approximated with 4-0 Monocryl in a subcuticular stitch. Surgical glue was then placed over all the incisions. Marcaine 10 mL was injected between the 2 incisions. The patient tolerated procedure well. Sponge, lap, and needle counts were all correct x3 the patient was taken to the recovery room awake and in stable condition.
--- NOTE | 2017-07-25 10:57 | Short Stay Summary ---
Short Stay Documentation Date of service: 07/25/17 - History H&P: dictated Past Surgical History: No surgical history Social history: no significant social history, - Allergies and Medications Current Medications: Allergies Penicillins Allergy (Severe, Verified 07/24/17 13:25) Anaphylaxis Home Medications Medication Instructions Recorded Confirmed Last Taken Type Ibuprofen 800 mg PO Q6HR #30 tablet 07/25/17 Unknown Rx oxyCODONE /ACETAMINOPHEN [Percocet 1 tab PO Q4HR #30 tab 07/25/17 Unknown Rx 5/325] Active Medications Famotidine (Pepcid) 20 mg IV PREOP NR Stop: 07/25/17 12:00 Last Admin: 07/25/17 08:55 Dose: 20 mg Hydromorphone HCl (Dilaudid) 0.5 mg IV Q10MIN PRN PRN Reason: Pain , Severe (7-10) Stop: 07/25/17 18:00 Sodium Chloride (Nacl 0.9% 1000 Ml) 1,000 mls @ 100 mls/hr IV DIRECT ALEJANDRO Last Admin: 07/25/17 08:53 Dose: 100 mls/hr Clindamycin HCl (Cleocin 600 Mg/50 Ml) 600 mg in 50 mls @ 100 mls/hr IV PREOP NR; Protocol Stop: 07/25/17 11:00 Gentamicin Sulfate/Sodium Chloride (Garamycin/Ns 100 Mg/100 Ml) 100 mg in 100 mls @ 200 mls/hr IV ONCE NR Stop: 07/25/17 11:00 Meperidine HCl (Demerol) 25 mg IV ONCE PRN PRN Reason: Shivering Stop: 07/25/17 18:00 Midazolam HCl (Versed) 2 mg IV PREOP NR Stop: 07/25/17 23:59 Last Admin: 07/25/17 08:54 Dose: 2 mg Ondansetron HCl (Zofran) 4 mg IV ONCE PRN PRN Reason: Nausea And Vomiting Stop: 07/25/17 18:00 - Brief post op/procedure progress note Date of procedure: 07/25/17 Pre-op diagnosis: desires sterilization Post-op diagnosis: same Procedure: BTL with felshi clip placement laproscopy Anesthesia: GETA Findings: See operative report Surgeon: YISEL DICKSON Estimated blood loss: minimal Pathology: none Condition: stable - Hospital course Hospital course: Patient admitted for above-stated procedure. Procedure done without difficulty or complications. Patient will be discharged home once recovery is complete and she has met discharge criteria in PACU. - Disposition Condition at discharge: Good Disposition: DC-01 TO HOME OR SELFCARE - Discharge Diagnoses (1) Encounter for sterilization Status: Acute Short Stay Discharge Plan Activity: no restrictions Diet: regular Wound: open to air Follow up with: EDWIGE GARCIA MD [Primary Care Provider] - 7 Days Prescriptions: Ibuprofen 800 mg PO Q6HR #30 tablet oxyCODONE /ACETAMINOPHEN [Percocet 5/325] 1 tab PO Q4HR #30 tab
[2017-07-25] MEDS ORDERED: DEMEROL IV PRN (11:00)
[2017-07-25] MEDS ORDERED: DILAUDID IV PRN (11:00)
[2017-07-25] MEDS ORDERED: ZOFRAN IV PRN (11:00)
[2017-07-25] MEDS ORDERED: PERCOCET 5/325 PO ONE (12:00)
[2017-07-25 15:51] VITALS: BP 114/62
== END 2017-07-25 12:10 | disposition home or self-care (01) ==
LOC: OR 07:13
PROVIDERS: ATTEND Obstetrics & Gynecology
DX: Z30.2 Encounter for sterilization (principal); F17.210 Nicotine dependence, cigarettes, uncomplicated; J45.909 Unspecified asthma, uncomplicated; E66.9 Obesity, unspecified; Z68.41 Body mass index [BMI] 40.0-44.9, adult; Z88.0 Allergy status to penicillin; Z79.899 Other long term (current) drug therapy; Z79.2 Long term (current) use of antibiotics; Z88.1 Allergy status to other antibiotic agents
CPT/HCPCS: 58671; 81025; J1170; J1580; J1885; J2001; J2250; J2405; J2704; J2710; J3010; J7030

== ENCOUNTER 2019-07-12 21:26 | Emergency (ER) | payer MEDICAID ==
[2019-07-12 21:45] VITALS: BP 127/77
--- NOTE | 2019-07-12 21:58 | Emergency Department Report ---
HPI - General Chief Complaint: Overdose Time Seen by Provider: 07/12/19 21:40 - HPI HPI: Room 7 The patient is a 29-year-old female present with a chief complaint of suicide attempt and suicidal ideation. The patient states he felt overwhelmed today and attempted to harm herself by injecting her 's insulin. She states approximately 1 hour prior to arrival she injected herself with Humalog 15 units. Patient denies any other ingestions. When asked how she is feeling the patient replies "I am fine." ED Past Medical Hx - Past Medical History Hx Asthma: Yes (childhood) - Surgical History Past Surgical History?: No - Family History Family history: no significant - Social History Smoking Status: Current Every Day Smoker Substance Use Type: Marijuana - Medications Home Medications: Home Medications Medication Instructions Recorded Confirmed Last Taken Type Ibuprofen 800 mg PO Q6HR #30 tablet 07/25/17 Unknown Rx oxyCODONE /ACETAMINOPHEN [Percocet 1 tab PO Q4HR #30 tab 07/25/17 Unknown Rx 5/325] ED Review of Systems ROS: Stated complaint: SUICIDAL THOUGHTS Other details as noted in HPI Constitutional: no symptoms reported Eyes: denies: eye pain ENT: denies: throat pain Respiratory: no symptoms reported Cardiovascular: denies: chest pain Endocrine: no symptoms reported Gastrointestinal: denies: abdominal pain Genitourinary: denies: dysuria Musculoskeletal: denies: back pain Neurological: denies: weakness Psychiatric: suicidal thoughts Physical Exam - Physical Exam Vital Signs: Vital Signs 07/12/19 21:44 Temperature 98.3 F Pulse Rate 89 Respiratory 20 Rate Blood Pressure 127/77 [Left] O2 Sat by Pulse 99 Oximetry Physical Exam: GEN: WD WN female lying on stretcher in NAD HEENT: NCAT, EOMI NECK: trachea midline PULM: CTA bilat. No resp distress noted CV: rrr no m/r/g ABD: s/nt/nd SKIN: no diaphoresis NEURO: GCS 15 MUSCULOSKELETAL: No evidence of acute injury ED Course Vital Signs 07/12/19 21:44 Temperature 98.3 F Pulse Rate 89 Respiratory 20 Rate Blood Pressure 127/77 [Left] O2 Sat by Pulse 99 Oximetry - Reevaluation(s) Reevaluation #1: 07/12/19 22:50 Informed by nursing that the patient eloped. Nursing reports police were notified ED Medical Decision Making - Lab Data Result diagrams: 07/12/19 21:51 07/12/19 21:51 Laboratory Tests 07/12/19 07/12/19 07/12/19 21:51 21:51 21:51 WBC 8.0 RBC 4.20 Hgb 11.7 Hct 36.3 MCV 86 MCH 28 MCHC 32 RDW 15.5 H Plt Count 221 Lymph % (Auto) 48.5 H [place] % (Auto) 5.6 Eos % (Auto) 2.6 Baso % (Auto) 1.0 Lymph # 3.9 [place] # 0.4 Eos # 0.2 Baso # 0.1 Seg Neutrophils % 42.3 Seg Neutrophils # 3.4 Sodium 140 Potassium 3.7 Chloride 107.2 H Carbon Dioxide 21 L Anion Gap 16 BUN 8 Creatinine 1.1 Estimated GFR > 60 BUN/Creatinine Ratio 7 Glucose 81 POC Glucose Calcium 9.0 Total Bilirubin 0.20 AST 15 ALT 12 Alkaline Phosphatase 55 Total Protein 7.1 Albumin 4.0 Albumin/Globulin Ratio 1.3 HCG, Qual Salicylates < 0.3 L Acetaminophen Plasma/Serum Alcohol 07/12/19 07/12/19 07/12/19 21:51 21:51 21:51 WBC RBC Hgb Hct MCV MCH MCHC RDW Plt Count Lymph % (Auto) [place] % (Auto) Eos % (Auto) Baso % (Auto) Lymph # [place] # Eos # Baso # Seg Neutrophils % Seg Neutrophils # Sodium Potassium Chloride Carbon Dioxide Anion Gap BUN Creatinine Estimated GFR BUN/Creatinine Ratio Glucose POC Glucose Calcium Total Bilirubin AST ALT Alkaline Phosphatase Total Protein Albumin Albumin/Globulin Ratio HCG, Qual Negative Salicylates Acetaminophen < 5.0 L Plasma/Serum Alcohol < 0.01 07/12/19 22:05 WBC RBC Hgb Hct MCV MCH MCHC RDW Plt Count Lymph % (Auto) [place] % (Auto) Eos % (Auto) Baso % (Auto) Lymph # [place] # Eos # Baso # Seg Neutrophils % Seg Neutrophils # Sodium Potassium Chloride Carbon Dioxide Anion Gap BUN Creatinine Estimated GFR BUN/Creatinine Ratio Glucose POC Glucose 68 L Calcium Total Bilirubin AST ALT Alkaline Phosphatase Total Protein Albumin Albumin/Globulin Ratio HCG, Qual Salicylates Acetaminophen Plasma/Serum Alcohol - Differential Diagnosis Suicidal ideation, insulin overdose Critical care attestation.: If time is entered above; I have spent that time in minutes in the direct care of this critically ill patient, excluding procedure time. ED Disposition Clinical Impression: Suicidal ideation, Insulin overdose Disposition: - ELOPED Is pt being admited?: No Does the pt Need Aspirin: No Condition: Undetermined Time of Disposition: 22:50 (Patient eloped. PD notified)
[2019-07-12 22:12] LABS: Basophils # (Auto) 0.1 K/mm3 (0.0-0.1); Eosinophils # (Auto) 0.2 K/mm3 (0.0-0.4); Eosinophils % (Auto) 2.6 % (0.0-4.3); Hematocrit 36.3 % (30.3-42.9); Hemoglobin 11.7 gm/dl (10.1-14.3); Lymphocytes # (Auto) 3.9 K/mm3 (1.2-5.4); Lymphocytes % (Auto) 48.5 % (13.4-35.0); Mean Corpuscular HGB Conc 32 % (30-34); Mean Corpuscular Volume 86 fl (79-97); Monocytes # (Auto) 0.4 K/mm3 (0.0-0.8); Monocytes % (Auto) 5.6 % (0.0-7.3); Platelet Count 221 K/mm3 (140-440); Red Cell Distribution Width 15.5 % (13.2-15.2)
[2019-07-12 22:35] LABS: Alanine Aminotransferase 12 units/L (7-56); BUN/Creatinine Ratio 7; Blood Urea Nitrogen 8 mg/dL (7-17); Hemolysis Index 6
== END 2019-07-12 22:00 | disposition left against medical advice (07) ==
LOC: ED 21:26
DX: R45.851 Suicidal ideations (principal); T38.3X2A Poisoning by insulin and oral hypoglycemic [antidiabetic] drugs, intentional self-harm, initial encounter; J45.909 Unspecified asthma, uncomplicated; F17.200 Nicotine dependence, unspecified, uncomplicated; F12.10 Cannabis abuse, uncomplicated; Z79.1 Long term (current) use of non-steroidal anti-inflammatories (NSAID); Z79.899 Other long term (current) drug therapy; Z88.0 Allergy status to penicillin; Y92.89 Other specified places as the place of occurrence of the external cause
CPT/HCPCS: 36415; 80053; 80320; 82962; 84703; 85025; G0480

== ENCOUNTER 2020-01-20 22:49 | Emergency (ER) | payer MEDICAID ==
[2020-01-20 22:58] VITALS: BP 135/90
== END 2020-01-20 23:30 | disposition left against medical advice (07) ==
LOC: ED 22:49
DX: H92.01 Otalgia, right ear (principal); Z53.21 Procedure and treatment not carried out due to patient leaving prior to being seen by health care provider